=== PATIENT | female | born 1990 ===

== ENCOUNTER 2016-07-28 11:50 | Emergency (ER) | payer SELFPAY ==
[2016-07-28 11:01] LABS: URINE BILIRUBIN NEGATIVE (NEG); URINE BLOOD NEGATIVE (NEG); URINE GLUCOSE (UA) NEGATIVE (NEG); URINE KETONE NEGATIVE (NEG); URINE LEUKOCYTE ESTERASE NEGATIVE (NEG); URINE NITRITE NEGATIVE (NEG); URINE PROTEIN NEGATIVE (NEG)
[2016-07-28 11:02] LABS: URINE APPEARANCE CLEAR; URINE COLOR PALE YELLOW
[~2016-07-28 11:50] MED LIST: NO HOME MEDICATION XX
== END 2016-07-28 11:55 ==
LOC: EDMED 11:50
PROVIDERS: Emergency Medicine
DX: N93.8 Other specified abnormal uterine and vaginal bleeding (principal); F17.210 Nicotine dependence, cigarettes, uncomplicated; Z98.51 Tubal ligation status
CPT/HCPCS: P9612